=== PATIENT | female | born 1955 | race Caucasian/White ===

== ENCOUNTER 2017-05-11 09:13 | Day surgery (SDC) | payer OTHER ==
[2017-05-04 15:01] VITALS: BMI 29.5
[~2017-05-11 09:13] MED LIST: oxyCODONE HCL 10 MG SUSTAINED ACTING TABLET PO ONE
--- NOTE | 2017-05-11 10:06 | HP ---
History & Physical Update - History History: No Change - Physical Physical: No Change - Assessment Assessment: No Change - Plan Plan: No Change
[2017-05-11] MEDS ORDERED: PROPOFOL 20 ML ONE ×7 (10:15→11:52)
[2017-05-11] MEDS ORDERED: MIDAZOLAM HCL 2 MG/2 ML SINGLE DOSE VIAL ONE (10:15)
[2017-05-11] MEDS ORDERED: SUCCINYLCHOLINE CHLORIDE 200 MG/10 ML VIAL ONE (10:15)
[2017-05-11] MEDS ORDERED: ROCURONIUM BROMIDE 50 MG/5 ML VIAL ONE (10:15)
[2017-05-11] MEDS ORDERED: ePHEDrine SULFATE 50 MG/1 ML AMPULE ONE (10:47)
[2017-05-11] MEDS ORDERED: CLINDAMYCIN PHOSPHATE 600 MG/4 ML VIAL ONE (10:50)
[2017-05-11] MEDS ORDERED: DEXAMETHASONE SOD PHOSPHATE 4 MG/1 ML VIAL ONE (10:50)
[2017-05-11] MEDS ORDERED: ONDANSETRON 4 MG/2 ML VIAL ONE (10:50)
[2017-05-11] MEDS ORDERED: LIDOCAINE HCL/PF 2% SDV 5ML VIAL ONE (10:56)
[2017-05-11] MEDS ORDERED: LIDOCAINE HCL 2% JELLY (5 ML/TUBE) ONE (10:56)
[2017-05-11] MEDS ORDERED: LIDOCAINE 1%/EPI 1:100000 (20 ML MULTI DOSE VIAL) IJ ONE (11:05)
[2017-05-11] MEDS ORDERED: oxyCODONE HCL 5 MG TABLET PO PRN ×4 (12:42→12:52)
[2017-05-11] MEDS ORDERED: ONDANSETRON 4 MG/2 ML VIAL IVPB PRN (12:42)
[2017-05-11] MEDS ORDERED: LACTATED RINGERS SOLUTION 1,000 ML IV SCH ×2 (12:45→13:00)
[2017-05-11] MEDS ORDERED: diazePAM CARPU-JECT 10 MG/2 ML DISP.SYRIN IVPUSH PRN (12:48)
[2017-05-11] MEDS ORDERED: ONDANSETRON 4 MG/2 ML VIAL IVPUSH PRN (12:52)
[2017-05-11] MEDS ORDERED: PROMETHAZINE HCL 25 MG/1 ML VIAL IVPUSH PRN (12:52)
--- NOTE | 2017-05-11 13:02 | OP ---
Operative Note - Note: Operative Date: 05/11/17 Pre-Operative Diagnosis: anterior cervcial spinal stenosis Operation: C3-C4 anterior cervical fusion, disectomy Surgeon: Carlito Kitchen Tile Molder: Nicol Savage Anesthesiologist/FREIGHT RATE ANALYST: Alex Enrique Anesthesia: General Specimens Removed: c3-c4 disc Estimated Blood Loss (mls): 30 Fluid Volume Replaced (mls): 1,000 Operative Report Dictated: Yes
--- NOTE | 2017-05-11 13:03 | SURG ---
Surgery Manager Math Note Manager Math: Nicol Savage PA-C Date of Service: 05/11/17 Diagnosis: anterior cervical stenosis Procedure: C3-C4 anterior cervical fusion, disectomy I was present for the entirety of the operative procedure. For further detail, please refer to operative report. Visit type - Case Type Case Type: Scheduled Admission - Emergency Emergency Visit: No - New patient This patient is new to me today: Yes Date on this admission: 05/11/17 - Critical Care Critical Care patient: No
[2017-05-11] MEDS ORDERED: ACETAMINOPHEN 325 MG TABLET (FP) ONE (13:30)
[2017-05-11] MEDS ORDERED: traMADol HCL 50 MG TABLET ONE (13:31)
[2017-05-11] MEDS ORDERED: ACETAMINOPHEN 650 MG/20.3 ML ORAL SOLUTION (CUPS) PO SCH ×2 (14:00→15:00)
[2017-05-11] MEDS: traMADol HCL 50 MG TABLET PO SCH ×2 (14:03→20:29)
[2017-05-11] MEDS: ACETAMINOPHEN 325 MG TABLET (FP) PO SCH ×2 (14:03→21:07)
[2017-05-11] MEDS ORDERED: ACETAMINOPHEN 325 MG TABLET (FP) PO SCH (14:45)
[2017-05-11] MEDS ORDERED: CLINDAMYCIN 900 MG PREMIX IVPB 50 ML IVPB SCH ×2 (17:00→18:00)
[2017-05-11] MEDS ORDERED: PT OWN MED DRAWER 7, Y5N ONE (21:03)
[2017-05-11] MEDS ORDERED: diazePAM 2 MG TABLET PO PRN (22:00)
[2017-05-11] MEDS ORDERED: VILAZODONE HYDROCHLORIDE 20 MG TABLET PO SCH (22:00)
[2017-05-11] MEDS ORDERED: PATIENT'S OWN MEDICATION (NON-FORMULARY) (Topiramate [Topiramate] 50 MG) PO SCH (22:00)
[2017-05-11 22:12] VITALS: TEMP 98
[2017-05-12] MEDS: traMADol HCL 50 MG TABLET PO SCH ×2 (01:22→09:15)
[2017-05-12] MEDS: ACETAMINOPHEN 325 MG TABLET (FP) PO SCH ×2 (03:00→09:15)
[2017-05-12 06:35] VITALS: BP 93/56; PULSE 68
[2017-05-12] MEDS ORDERED: LEVOTHYROXINE NA 100 MCG TABLET (FP) PO SCH (07:00)
--- NOTE | 2017-05-12 08:19 | DS ---
Physical Exam: SUBJECTIVE: Patient seen and examined she states that her left arm is less painful and she is able to move it better, raise her head over her arm. She tolerated clears/pills last pm without difficulty swallowing. OBJECTIVE: Vital Signs Temperature 98.0 F 05/12/17 04:00 Pulse Rate 68 05/12/17 04:00 Respiratory Rate 18 05/12/17 04:00 Blood Pressure 93/56 05/12/17 04:00 O2 Sat by Pulse Oximetry (%) 93 L 05/12/17 04:00 PHYSICAL EXAM GENERAL: The patient is awake, alert, and fully oriented, in no acute distress. NECK: Trachea midline, supple, no ecchymosis noted or masses. No stridor. Dressing c/d/i. Cervical collar in place. LUNGS: Breath sounds equal, clear to auscultation bilaterally, no wheezes, no crackles, no accessory muscle use. HEART: Regular rate and rhythm. ABDOMEN: Soft, nontender, nondistended, normoactive bowel sounds, no guarding. EXTREMITIES: 2+ pulses, warm, well-perfused, no edema. Abduction of shoulder 5/ 5 b/l. Visual Display Associate strength equal b/l. NEUROLOGICAL: Normal speech, gait not observed. PSYCH: Normal mood, normal affect. SKIN: Warm, dry, normal turgor. LABS HOSPITAL COURSE: Date of Admission:05/11/17 Date of Discharge: 05/12/17 The patient was admitted to the Med-Surg Unit after an elective repair of their spinal stenosis. Now, s/p anterior fusion of C3-C4. The day of surgery, the patient ambulated the hallways with assistance. Narcotic and non-narcotic pain management control was achieved with an oral and IV approach. An xray was obtained and confirmed hardware placement at C3-C4, no fractures or dislocations.Louise-operative IV ABX were administered. DVT prophylaxis was achieved with SCDs and early ambulation. The patient ambulated with Physical Therapy and no services were recommended upon discharge. Narcotic scripts and or muscle relaxants were checked with [place] HOTEL CLERK prior to escibe. The discharge instructions and an oral pain management plan were reviewed with the patient. All questions answered. Above plan discussed with Dr. Kitchen and agreed. Minutes to complete discharge: 20 <Nicol Savage - Last Filed: 05/12/17 15:46> Physical Exam: SUBJECTIVE: Patient seen and examined OBJECTIVE: Vital Signs Temperature 98.0 F 05/12/17 04:00 Pulse Rate 68 05/12/17 04:00 Respiratory Rate 18 05/12/17 08:18 Blood Pressure 93/56 05/12/17 04:00 O2 Sat by Pulse Oximetry (%) 96 05/12/17 08:18 PHYSICAL EXAM GENERAL: The patient is awake, alert, and fully oriented, in no acute distress. HEAD: Normal with no signs of trauma. EYES: PERRL, extraocular movements intact, sclera anicteric, conjunctiva clear. ENT: Ears normal, nares patent, oropharynx clear without exudates, moist mucous membranes. NECK: Trachea midline, full range of motion, supple. LUNGS: Breath sounds equal, clear to auscultation bilaterally, no wheezes, no crackles, no accessory muscle use. HEART: Regular rate and rhythm, S1, S2 without murmur, rub or gallop. ABDOMEN: Soft, nontender, nondistended, normoactive bowel sounds, no guarding, no rebound, no hepatosplenomegaly, no masses. EXTREMITIES: 2+ pulses, warm, well-perfused, no edema. NEUROLOGICAL: Cranial nerves II through XII grossly intact. Normal speech, gait not observed. PSYCH: Normal mood, normal affect. SKIN: Warm, dry, normal turgor, no rashes or lesions noted. LABS HOSPITAL COURSE: Date of Admission:05/11/17 Date of Discharge: 05/14/17 The patient was admitted to the Med-Surg Unit after an elective repair of their C3-4 herniated disc. The day of surgery, the patient ambulated the hallways with assistance. Narcotic and non-narcotic pain management control was achieved with an oral and IV approach. POD #1, the surgical drain was removed fully intact and without incident. An xray was obtained and confirmed hardware placement at C3-4, no fractures or dislocations. Louise-operative IV ABX were administered. DVT prophylaxis was achieved with SCDs and early ambulation. The patient ambulated with Physical Therapy and no services were recommended upon discharge. Narcotic scripts and or muscle relaxants were checked with [place] H[employer] CLERK prior to escibe. The discharge instructions and an oral pain management plan were reviewed with the patient. All questions answered. Above plan discussed with Dr. Kitchen and agreed. <Imtiaz,Carlito - Last Filed: 05/14/17 15:14> Visit type - Case Type Case Type: Scheduled Admission - Emergency Emergency Visit: No - New patient This patient is new to me today: Yes Date on this admission: 05/12/17 - Critical Care Critical Care patient: No Total Critical Care Time: 30 Critical Care Statement: The care of this patient involved high complexity decision making to prevent further life threatening deterioration of the patient 's condition and/or to evaluate & treat vital organ system(s) failure or risk of failure. <Nicol Savage - Last Filed: 05/12/17 15:46>
[2017-05-12] MEDS ORDERED: PT OWN MED DRAWER 7, Y5N ONE (09:13)
--- NOTE | 2017-05-12 09:44 | PN ---
Progress Note (short form) - Note Progress Note: 61F POD1 s/p ACDF under [facility] doing well. Pt states that pain is well controlled, AVSS, pt reports no anesthetic complications. Pt to be discharged home later today.
[2017-05-12] MEDS ORDERED: LIOTHYRONINE SODIUM 5 MCG TABLET PO SCH (10:00)
--- NOTE | 2017-05-12 11:40 | OP ---
DATE OF OPERATION: 05/11/2017 PREOPERATIVE DIAGNOSIS: Cervical stenosis, C3-4. POSTOPERATIVE DIAGNOSIS: Cervical stenosis, C3-4. PROCEDURE PERFORMED: 1. Anterior cervical diskectomy and fusion, C3-4. 2. Placement of prosthetic cage. 3. Placement of plate and screws. SURGEON: Carlito Kitchen MD [employer] SLITTING MACHINE OPERATOR: JACKY Romo ESTIMATED BLOOD LOSS: 50 mL INTRAVENOUS FLUIDS: Per Anesthesia. COMPLICATIONS: None. ANESTHESIA: General. DISPOSITION: Patient was brought to the PACU in stable condition. INDICATIONS FOR SURGERY: The patient is a 61-year-old female who has been suffering from pain from her neck down her arms. X-rays and MRI were completed. It was noted that she had cervical stenosis at C3-4. She had gone through an exhaustive course of treatment for this, which included medications, physical therapy, as well as injections. Unfortunately, her pain continued to persist despite all of this. At this point, risks, benefits, and alternatives were discussed, and the patient consented to surgery. DESCRIPTION OF PROCEDURE: The patient was brought to the operating room by the anesthesia staff. After appropriate patient identification was performed, general anesthesia was administered. Appropriate anesthetic lines were placed. SCDs were placed on the patient. She was placed supine on the OR bed with the arms tucked in at the sides, and all areas of bony prominences well padded at this time. A shoulder roll was placed underneath her shoulders to extend her neck to the point that she could tolerate in the preoperative holding area. A needle was taped onto her neck to pedro off the C3-4 location. An x-ray was taken to confirm this as correct. Needle was removed, and 10 mL of lidocaine with epinephrine were injected into her neck at this time. Her neck was prepped and draped in sterile manner. At this point, timeout was completed. An incision was made in the left side of her neck. Dissection was carried down to the platysma. The platysma was cut in line with the skin incision. Next, the interval between the sternocleidomastoid as well as strap muscles was developed. Next, the interval between the carotid sheath as well as tracheoesophagus was developed. Peanuts were used to elevate it off of the prevertebral space. A spinal needle was placed into the C3-4 disk. An x-ray was taken to confirm this as correct. At this point, the needle was removed. The longus colli muscles were elevated off, and retractor blades were placed in. A knife was used to incise the disk. A Traver pin was placed into the body of C3 and C4, and distraction was applied. At this point, a Loya was used to elevate the disk off the endplate. Using a series of pituitaries, Kerrisons, and curettes, a complete diskectomy was performed at this time. The endplates were decorticated at this time. A cage filled with bone graft was placed in. A screw was placed into the body of C3. A screw was placed into the body of C4. Traver pins were removed. AP and lateral x-rays confirmed the instrumentation to be in good position. Final tightening was performed. All bleeding was well controlled at this time. The platysma was closed with 2-0 Vicryl suture. Skin was closed with 3-0 Monocryl suture. Dermabond was applied. Steri-Strips were applied. A sterile dressing was applied. Patient was placed supine on the OR bed, extubated in the OR, and brought to the PACU in stable condition. [id number] [id number]
--- NOTE | 2017-05-12 13:27 | PATH ---
Surgical Pathology Report Patient Name: BRANDYN VÁZQUEZ Med. Rec. #: [id number] /Age/Gender: 1955 (Age: 61) / F Account: [id number] Location: [facility] MED-SURG Taken: 05/11/2017 Received: 05/11/2017 Reported: 05/12/2017 Physicians: Carlito Kitchen M.D. Specimen(s) Received CERVICAL DISC C3-C4 Clinical History Cervical stenosis Final Diagnosis INTERVERTEBRAL DISC, C3-4, PARTIAL EXCISION: PORTIONS OF INTERVERTEBRAL DISC. Electronically Signed Lance Portillo M.D. Gross Description Received in formalin, labeled "cervical disc C3- C4" it is x 1.5 x 0.2 cm in aggregate site fragments of [place] fibrocartilaginous tissue. Submitted entirely in one cassette. AF/05/11/2017 final/05/11/2017
== END 2017-05-12 12:50 | disposition home or self-care (01) ==
LOC: FASU 09:13 → FM/S 14:42 → FASU 05-12 12:50
PROVIDERS: ATTEND Orthopaedic Surgery Orthopaedic Surgery of the Spine
PROC: 0RG10A0 Fusion of Cervical Vertebral Joint with Interbody Fusion Device, Anterior Approach, Anterior Column, Open Approach (ICD-10-PCS; 2017-05-11)
PROC: 0RG10K0 Fusion of Cervical Vertebral Joint with Nonautologous Tissue Substitute, Anterior Approach, Anterior Column, Open Approach (ICD-10-PCS; 2017-05-11)
PROC: 0RB30ZZ Excision of Cervical Vertebral Disc, Open Approach (ICD-10-PCS; principal; 2017-05-11 10:31)
DX: M48.02 Spinal stenosis, cervical region (principal)
CPT/HCPCS: 72050-TC; 76001-TC; 88304-TC; 94010; 94760; 97116-GP; 97161-GP

== ENCOUNTER 2024-06-27 14:48 | Day surgery (SDC) | payer OTHER ==
[2024-06-27] MEDS ORDERED: morphine SULFATE 4 MG/ML VIAL ONE (15:21)
[2024-06-27] MEDS ORDERED: ACETAMINOPHEN 1000 MG/100 ML BAG IVPB PRN (16:08)
[2024-06-27] MEDS: morphine CARPU-JECT 4 MG/1 ML DISP.SYRIN IVPUSH ONE (16:15)
[2024-06-27] MEDS ORDERED: ALBUTEROL SO4 HFA INHALER IH PRN (16:19)
[2024-06-27 16:36] LABS: HEMATOCRIT 39.2 % (32.4-45.2); HEMOGLOBIN 13.3 G/dL (10.7-15.3); MEAN CELL VOLUME 91.2 fl (80-96); MEAN PLT VOLUME 8.8 fl (7.5-11.1); PLATELET COUNT 222.7 10^3/uL (134-434); RDW 13.5 % (11.6-15.6); WHITE BLOOD COUNT 9.2 10^3/uL (4.0-10.8)
[2024-06-27 16:37] LABS: INR 1.01 (0.83-1.09); PROTHROMBIN TIME (PATIENT) 11.5 SEC (9.7-13.0)
[2024-06-27 16:51] LABS: CALCIUM 9.3 mg/dl (8.5-10.1); CREATININE 0.7 mg/dl (0.6-1.3); POTASSIUM 3.9 mmol/L (3.5-5.1)
[2024-06-27 16:52] LABS: ALBUMIN 4.3 g/dl (3.4-5.0); BILIRUBIN,TOTAL 0.6 mg/dl (0.2-1); TOT PROT 6.4 g/dl (6.4-8.2)
[2024-06-27 16:55] LABS: PLATELET ESTIMATE ADEQUATE
[2024-06-27] MEDS: ACETAMINOPHEN 1000 MG/100 ML BAG IVPB PRN (18:32)
[2024-06-27] MEDS: oxyCODONE HCL 5 MG TABLET PO PRN (18:33)
[2024-06-27 22:35] VITALS: BMI 33.2
[2024-06-28] MEDS: LEVOTHYROXINE NA 100 MCG TABLET (FP) PO SCH (06:40)
[2024-06-28] MEDS ORDERED: LEVOTHYROXINE NA 100 MCG TABLET (FP) PO SCH (07:30)
[2024-06-28] MEDS: LIOTHYRONINE SODIUM 5 MCG TABLET PO SCH (07:49)
[2024-06-28] MEDS ORDERED: BUPIVACAINE LIPOSOME/PF (EXPAREL) 266 MG/20 ML VIAL ONE (10:58)
[2024-06-28] MEDS ORDERED: BUPIVACAINE HCL/PF 0.5% (5MG/ML) 10 ML VIAL ONE (10:58)
[2024-06-28] MEDS ORDERED: MIDAZOLAM HCL 2 MG/2 ML SINGLE DOSE VIAL ONE (10:58)
[2024-06-28] MEDS ORDERED: PROPOFOL 20 ML ONE (11:14)
[2024-06-28] MEDS ORDERED: SUCCINYLCHOLINE CHLORIDE 200 MG/10 ML SYRINGE ONE (11:14)
[2024-06-28] MEDS ORDERED: VANCOMYCIN 1,000 MG VIAL (RESTRICTED TO ID ONLY) ONE (11:34)
[2024-06-28] MEDS ORDERED: TRANEXAMIC ACID 1000 MG/10 ML VIAL ONE (11:35)
[2024-06-28 11:50] LABS: HEMATOCRIT 36.2 % (32.4-45.2); HEMOGLOBIN 12.1 G/dL (10.7-15.3); MCH 30.5 pg (25.7-33.7); MCHC 33.4 g/dl (32.0-36.0); MEAN CELL VOLUME 91.1 fl (80-96); MEAN PLT VOLUME 8.6 fl (7.5-11.1); PLATELET COUNT 199.8 10^3/uL (134-434); RBC 3.97 10^6/uL (3.60-5.2); RDW 13.6 % (11.6-15.6); WHITE BLOOD COUNT 6.5 10^3/uL (4.0-10.8)
[2024-06-28 12:21] LABS: ALBUMIN 3.7 g/dl (3.4-5.0); BILIRUBIN,TOTAL 0.7 mg/dl (0.2-1); CALCIUM 8.7 mg/dl (8.5-10.1); CREATININE 0.7 mg/dl (0.6-1.3); TOT PROT 5.6 g/dl (6.4-8.2)
[2024-06-28 12:56] LABS: PLATELET ESTIMATE ADEQUATE
[2024-06-28] MEDS: VILAZODONE HYDROCHLORIDE 10 MG TABLET PO SCH (18:07)
[2024-06-28] MEDS: MELATONIN 5 MG TABLETS PO PRN (20:49)
[2024-06-29] MEDS ORDERED: VANCOMYCIN 1,000 MG VIAL (RESTRICTED TO ID ONLY) ONE ×2 (07:07→07:18)
[2024-06-29] MEDS ORDERED: TRANEXAMIC ACID 1000 MG/10 ML VIAL ONE ×2 (07:07→07:18)
[2024-06-29] MEDS ORDERED: MIDAZOLAM HCL 2 MG/2 ML SINGLE DOSE VIAL ONE (07:15)
[2024-06-29] MEDS ORDERED: ACETAMINOPHEN INJECTION 100 ML ONE (07:23)
[2024-06-29] MEDS ORDERED: BUPIVACAINE LIPOSOME/PF (EXPAREL) 266 MG/20 ML VIAL ONE (07:23)
[2024-06-29] MEDS ORDERED: BUPIVACAINE HCL/PF 0.5% (5MG/ML) 10 ML VIAL ONE (07:23)
[2024-06-29 09:01] LABS: INR 1.04 (0.83-1.09); PROTHROMBIN TIME (PATIENT) 11.8 SEC (9.7-13.0)
[2024-06-29 09:22] LABS: MAGNESIUM 2.2 mg/dL (1.8-2.4); PHOSPHOROUS 3.5 (2.5-4.9)
[2024-06-29 10:11] LABS: BASO % 0.6 % (0-2.0); EOS % 2.6 % (0-4.5); HEMATOCRIT 39.1 % (32.4-45.2); HEMOGLOBIN 13.2 GM/dL (10.7-15.3); LYMPH % 21.5 % (8-40); MCH 30.5 pg (25.7-33.7); MCHC 33.8 g/dl (32.0-36.0); MEAN CELL VOLUME 90.3 fl (80-96); MEAN PLT VOLUME 8.3 fl (7.5-11.1); MONO % 7.2 % (3.8-10.2); NEUT % 68.1 % (42.8-82.8); PLATELET COUNT 242 10^3/uL (134-434); RBC 4.33 M/mm3 (3.60-5.2); WHITE BLOOD COUNT 8.1 K/mm3 (4.0-10.0)
[2024-06-29] MEDS ORDERED: GLYCOPYRROLATE 0.2 MG/1 ML VIAL ONE (11:22)
[2024-06-29] MEDS ORDERED: ALBUTEROL SO4 HFA INHALER IH ONE (11:22)
[2024-06-29] MEDS ORDERED: PHENYLEPHRINE HCL 10 MG/1 ML SINGLE DOSE VIAL ONE (11:43)
[2024-06-29] MEDS ORDERED: ONDANSETRON 4 MG/2 ML VIAL IVPUSH PRN (11:44)
[2024-06-29] MEDS ORDERED: NALOXONE HCL 0.4 MG/ML VIAL IVPUSH PRN (11:45)
[2024-06-29] MEDS ORDERED: oxyCODONE HCL 5 MG TABLET PO PRN (11:47)
[2024-06-29] MEDS ORDERED: SUGAMMADEX SODIUM 200 MG/2 ML VIAL ONE (13:42)
[2024-06-29] MEDS ORDERED: PROPOFOL 20 ML ONE ×2 (13:51→14:08)
[2024-06-29] MEDS ORDERED: MAG HYDROX/AL HYDROX/SIMETH 30 ML UNIT-DOSE CUP PO PRN (15:00)
[2024-06-29] MEDS ORDERED: LACTATED RINGERS SOLUTION 1,000 ML IV SCH (15:00)
[2024-06-29] MEDS ORDERED: FENTANYL CITRATE/PF 50 MCG/ML VIAL ONE (15:48)
[2024-06-29] MEDS: LACTATED RINGERS SOLUTION 1,000 ML IV SCH (17:02)
[2024-06-29] MEDS: CEFAZOLIN SODIUM 2 GM in DEXTROSE 5%-WATER 100 ML IVPB SCH (19:42)
[2024-06-29 22:29] VITALS: RESP 18
[2024-06-29] MEDS: ACETAMINOPHEN 500 MG TABLET (FP) PO PRN (23:47)
[2024-06-30] MEDS: oxyCODONE HCL 5 MG TABLET PO PRN (01:50)
[2024-06-30 07:44] LABS: HEMATOCRIT 31.9 % (32.4-45.2); HEMOGLOBIN 10.5 G/dL (10.7-15.3); MCH 30.4 pg (25.7-33.7); MEAN CELL VOLUME 92.2 fl (80-96); MEAN PLT VOLUME 8.5 fl (7.5-11.1); PLATELET COUNT 219.5 10^3/uL (134-434); RBC 3.46 10^6/uL (3.60-5.2); RDW 13.9 % (11.6-15.6); WHITE BLOOD COUNT 11.8 10^3/uL (4.0-10.8)
[2024-06-30] MEDS: VANCOMYCIN/WATER FOR INJ (PEG) 1,000 MG/200 ML BAG IVPB ONE (07:57)
[2024-06-30 08:04] LABS: CALCIUM 8.5 mg/dl (8.5-10.1); CREATININE 0.7 mg/dl (0.6-1.3); POTASSIUM 4.2 mmol/L (3.5-5.1)
[2024-06-30 09:23] VITALS: TEMP 98.4
[2024-06-30] MEDS: SENNOSIDES/DOCUSATE COMBO (SENNA PLUS) TABLET (UD) PO SCH (09:35)
[2024-06-30] MEDS: MULTIVITAMINS (DAILY MVI) TABLET (FP) PO SCH (09:35)
[2024-06-30] MEDS: ASPIRIN COATED 81 MG TABLET.EC PO SCH (09:35)
[2024-06-30] MEDS ORDERED: PANTOPRAZOLE 40 MG TABLET PO SCH ×2 (10:00)
[2024-06-30 13:37] VITALS: BP 91/60; PULSE 85
== END 2024-06-30 14:45 | disposition home or self-care (01) ==
LOC: FER 14:48 → UNDOADMIN 16:06 → FM/S 16:06 → SUATTDRO 06-29 15:08 → FASUSAT 06-29 15:08 → FM/S 06-29 15:08 → FASUSAT 06-30 14:45
PROVIDERS: ATTEND Internal Medicine
PROC: 0LS40ZZ Reposition Left Upper Arm Tendon, Open Approach (ICD-10-PCS; 2024-06-29)
PROC: 0RRK00Z Replacement of Left Shoulder Joint with Reverse Ball and Socket Synthetic Substitute, Open Approach (ICD-10-PCS; principal; 2024-06-29 11:43)
DX: S42.202A Unspecified fracture of upper end of left humerus, initial encounter for closed fracture (principal); M19.012 Primary osteoarthritis, left shoulder; M75.22 Bicipital tendinitis, left shoulder; S46.012A Strain of muscle(s) and tendon(s) of the rotator cuff of left shoulder, initial encounter; W19.XXXA Unspecified fall, initial encounter; Y93.9 Activity, unspecified; Y92.9 Unspecified place or not applicable; Z88.0 Allergy status to penicillin; Z88.8 Allergy status to other drugs, medicaments and biological substances
CPT/HCPCS: 23430; 23472; C1776; 36415; 71045-TC-FY; 73030-TC-LT-FY; 73200-TC-RT; 80048; 80053; 80061; 81003; 83036; 83735; 84100; 84443; 85025; 85027; 85610; 86850; 86900; 86901; 88305-TC; 88311-TC; 88342-TC; 93005; 93306-TC; 94760; 97116-GP; 97162-GP; 99285-25; C1713; C1889; J0131